=== PATIENT | male | born 1980 | race Caucasian/White ===

== ENCOUNTER 2018-08-11 13:06 | Inpatient (IN) | payer SELFPAY ==
[~2018-08-11] VITALS: Ht 175.3 cm; Wt 68.0 kg
[2018-08-11 14:37] LABS: PLATELET COUNT 683 x10^3mcL (130-400)
[2018-08-11 14:42] LABS: BAND NEUTROPHIL 0 % (0-10); BASOPHIL 0 % (0-2); MONOCYTE 6 % (0-7); SEGMENTED NEUTROPHILS 91 % (37-75)
[2018-08-11 14:43] LABS: rbc morphology (normal/abnorm) ABNORMAL (NORMAL)
[2018-08-11 14:44] LABS: PLATELET MORPHOLOGY PLATELETS INCREASED
[2018-08-11 14:45] LABS: CARBON DIOXIDE 23.4 mmol/L (21-32); CHLORIDE SERUM 96 mmol/L (98-107); CREATININE SERUM 0.9 mg/dL (0.7-1.3); GFR1 > 60 mL/min; GLUCOSE SERUM 118 mg/dL (74-106); POTASSIUM SERUM 4.3 mmol/L (3.5-5.1); SODIUM SERUM 131 mmol/L (136-145)
[2018-08-11 14:59] LABS: ALBUMIN 2.5 g/dL (3.4-5.0); ALKALINE PHOSPHATASE 191 U/L (46-116); ALT/SGPT 89 U/L (16-63); AST/SGOT 51 U/L (15-37); BILIRUBIN TOTAL 0.51 mg/dL (0.20-1.00); MAGNESIUM 1.7 mg/dL (1.8-2.4); TOTAL PROTEIN, SERUM 8.6 g/dL (6.4-8.2)
[2018-08-11 15:35] LABS: microscopic required? NO
[2018-08-11 15:50] LABS: urine erythrocyte NEGATIVE (NEGATIVE)
[2018-08-11 16:04] LABS: AMPHETAMINE QUAL UR NONE DETECTED (See below)
[2018-08-11 18:30] LABS: PHOSPHOROUS 3.6 mg/dL (2.5-4.9)
[2018-08-11 18:31] LABS: CHOLESTEROL/HDL RATIO 5.1; FREE T4 1.32 ng/dL (0.76-1.46)
[2018-08-11 18:38] LABS: T3 TOTAL 0.89 ng/mL
[2018-08-11 18:43] VITALS: BP 109/56
[2018-08-11 18:53] VITALS: BP 109/56
[2018-08-11 19:10] VITALS: BP 103/53
[2018-08-11 22:11] VITALS: BP 106/62
[2018-08-12 06:35] VITALS: BP 99/59
[2018-08-12 08:07] LABS: CALCIUM 8.2 mg/dL (8.5-10.1); CARBON DIOXIDE 21.4 mmol/L (21-32); CHLORIDE SERUM 104 mmol/L (98-107); CREATININE SERUM 0.9 mg/dL (0.7-1.3); GFR1 > 60 mL/min; GLUCOSE SERUM 106 mg/dL (74-106); PHOSPHOROUS 4.3 mg/dL (2.5-4.9); POTASSIUM SERUM 3.7 mmol/L (3.5-5.1); SODIUM SERUM 136 mmol/L (136-145)
[2018-08-12 08:23] LABS: RED CELL DISTRIBUTION WIDTH 18.8 % (11.5-14.5)
[2018-08-12 09:06] VITALS: BP 99/55
[2018-08-12 09:47] LABS: BAND NEUTROPHIL 1 % (0-10); BASOPHIL 0 % (0-2); MONOCYTE 5 % (0-7); SEGMENTED NEUTROPHILS 92 % (37-75)
[2018-08-12 09:48] LABS: PLATELET MORPHOLOGY PLATELETS INCREASED; rbc morphology (normal/abnorm) ABNORMAL (NORMAL)
[2018-08-12 12:46] LABS: PLATELET COUNT 632 x10^3mcL (130-400)
[2018-08-12 16:49] VITALS: BP 100/55
[2018-08-12 20:59] VITALS: BP 108/63
[2018-08-13 05:38] VITALS: BP 90/44
[2018-08-13 07:56] LABS: CALCIUM 8.4 mg/dL (8.5-10.1); CARBON DIOXIDE 20.8 mmol/L (21-32); CHLORIDE SERUM 106 mmol/L (98-107); CREATININE SERUM 0.8 mg/dL (0.7-1.3); GFR1 > 60 mL/min; GLUCOSE SERUM 96 mg/dL (74-106); POTASSIUM SERUM 4.6 mmol/L (3.5-5.1); SODIUM SERUM 136 mmol/L (136-145)
[2018-08-13 08:04] VITALS: BP 95/55
[2018-08-13 08:10] LABS: RED CELL DISTRIBUTION WIDTH 18.6 % (11.5-14.5)
[2018-08-13 08:14] LABS: PLATELET COUNT 510 x10^3mcL (130-400)
[2018-08-13 11:52] VITALS: BP 114/45
[2018-08-13 11:57] LABS: BAND NEUTROPHIL 5 % (0-10); BASOPHIL 0 % (0-2); MONOCYTE 13 % (0-7); SEGMENTED NEUTROPHILS 74 % (37-75)
[2018-08-13 11:59] LABS: PLATELET MORPHOLOGY PLATELETS INCREASED; rbc morphology (normal/abnorm) ABNORMAL (NORMAL)
[2018-08-13 17:38] VITALS: BP 94/53
[2018-08-13 21:08] VITALS: BP 101/58
[2018-08-14 05:02] VITALS: BP 110/61
[2018-08-14 06:52] LABS: BASOPHIL % 0.9 % (0-2)
[2018-08-14 06:59] LABS: PLATELET COUNT 597 x10^3mcL (130-400); RED CELL DISTRIBUTION WIDTH 18.4 % (11.5-14.5)
[2018-08-14 07:00] LABS: CALCIUM 8.4 mg/dL (8.5-10.1); CARBON DIOXIDE 26.2 mmol/L (21-32); CHLORIDE SERUM 110 mmol/L (98-107); CREATININE SERUM 0.9 mg/dL (0.7-1.3); GFR1 > 60 mL/min; GLUCOSE SERUM 91 mg/dL (74-106); PHOSPHOROUS 4.3 mg/dL (2.5-4.9); POTASSIUM SERUM 3.9 mmol/L (3.5-5.1); SODIUM SERUM 141 mmol/L (136-145)
[2018-08-14 09:55] VITALS: BP 110/63
[2018-08-14 13:00] VITALS: BP 104/54
[2018-08-14 17:25] VITALS: BP 123/71
[2018-08-14 21:13] VITALS: BP 108/52
[2018-08-15 06:26] VITALS: BP 102/53
[2018-08-15 07:11] LABS: CALCIUM 8.2 mg/dL (8.5-10.1); CARBON DIOXIDE 26.4 mmol/L (21-32); CHLORIDE SERUM 109 mmol/L (98-107); CREATININE SERUM 0.8 mg/dL (0.7-1.3); GFR1 > 60 mL/min; GLUCOSE SERUM 90 mg/dL (74-106); MAGNESIUM 2.4 mg/dL (1.8-2.4); POTASSIUM SERUM 3.7 mmol/L (3.5-5.1); SODIUM SERUM 144 mmol/L (136-145)
[2018-08-15 07:56] LABS: BASOPHIL % 1.4 % (0-2)
[2018-08-15 07:58] LABS: RED CELL DISTRIBUTION WIDTH 18.2 % (11.5-14.5)
[2018-08-15 08:47] LABS: PLATELET COUNT 579 x10^3mcL (130-400)
[2018-08-15 09:36] VITALS: BP 91/50
[2018-08-15 10:09] VITALS: Ht 175.3 cm; Wt 68.0 kg
== END 2018-08-15 12:39 | disposition left against medical advice (07) | DRG 871 ==
LOC: ED 13:06 → DU 17:44
PROVIDERS: Emergency Medicine; Internal Medicine; Surgery; ADMIT General Practice
PROC: 0X9J0ZZ Drainage of Right Hand, Open Approach (ICD-10-PCS; principal; 2018-08-12 11:15)
DX: A41.9 Sepsis, unspecified organism (principal); E43 Unspecified severe protein-calorie malnutrition; L03.116 Cellulitis of left lower limb; L03.317 Cellulitis of buttock; L02.31 Cutaneous abscess of buttock; L02.416 Cutaneous abscess of left lower limb; E87.1 Hypo-osmolality and hyponatremia; L02.413 Cutaneous abscess of right upper limb; L98.419 Non-pressure chronic ulcer of buttock with unspecified severity; E83.42 Hypomagnesemia; Z53.21 Procedure and treatment not carried out due to patient leaving prior to being seen by health care provider; F17.210 Nicotine dependence, cigarettes, uncomplicated; R65.20 Severe sepsis without septic shock; Z90.49 Acquired absence of other specified parts of digestive tract; Z68.22 Body mass index [BMI] 22.0-22.9, adult
CPT/HCPCS: 84439; J1170; J1885; J2001; J2310; J2543; J3010; J3370; J7030; Q0092